=== PATIENT | male | born 1940 | race Caucasian/White ===

== ENCOUNTER 2016-07-10 10:33 | Emergency (ER) | payer MEDICARE, BC ==
[~2016-07-10] VITALS: Ht 177.8 cm; Wt 81.6 kg
[2016-07-10] MEDS ORDERED: ASPI81TA31 PO (10:43)
[2016-07-10] MEDS ORDERED: TRAZ-144 PO (10:43)
[2016-07-10] MEDS ORDERED: TAMS0.4C34 PO (10:44)
[2016-07-10] MEDS ORDERED: ROSU10TA PO (10:44)
--- NOTE | 2016-07-10 11:31 | NUR ---
Patient discharged to home in stable conditon. Written and verbal after care instructions given to patient. Patient verbalizes understanding of instructions.
== END 2016-07-10 11:32 | disposition home or self-care (01) ==
LOC: ER 10:33
DX: S61.211A Laceration without foreign body of left index finger without damage to nail, initial encounter (principal); Z79.82 Long term (current) use of aspirin; W54.0XXA Bitten by dog, initial encounter; Y93.89 Activity, other specified; Y99.8 Other external cause status; Y92.89 Other specified places as the place of occurrence of the external cause
CPT/HCPCS: A4663